=== PATIENT | female | born 1955 | race African-American/Black ===

== ENCOUNTER 2017-12-20 22:31 | Inpatient (IN) | payer MEDICAID ==
[~2017-12-20] VITALS: Ht 157.5 cm; Wt 68.0 kg
[~2017-12-20 22:31] MED LIST: CARBAMAZEPINE200 MG ORAL; CLONIDINE 0.2M0.2 MG GT; CLONIDINE0.1 MG ORAL; COLACE100 MG ORAL; HALOPERIDOL1 MG ORAL; LISINOPRIL20 MG ORAL; NORCO 5-325 TA1 EACH ORAL; RISPERDAL1 MG PO; TEMAZEPAM15 MG ORAL; TRAZODONE HCL150 MG ORAL; TYLENOL650 MG/20. ORAL
[2017-12-20 22:50] VITALS: BP 190/98
[2017-12-20] MEDS ORDERED: Furosemide 40mg tab ORAL ONE (23:45)
[2017-12-20 23:51] LABS: BASOPHILS % (AUTO) 1.1 % (0.0-2.0); EOSINOPHILS % (AUTO) 2.1 % (0.0-3.0); HEMATOCRIT 31.7 % (37.0-47.0); LYMPHOCYTES % (AUTO) 37.7 % (20.0-45.0); MEAN CORPUSCULAR VOLUME 85 FL (80-99); MONOCYTES % (AUTO) 9.1 % (1.0-10.0); PLATELET COUNT 207 K/UL (150-450); RED BLOOD COUNT 3.73 M/UL (4.20-5.40); RED CELL DISTRIBUTION WIDTH 14.4 % (11.6-14.8); WHITE BLOOD COUNT 6.1 K/UL (4.8-10.8)
[2017-12-21] LABS: INR 1.1 (0.9-1.1)
[2017-12-21 00:14] LABS: ANION GAP 7 mmol/L (5-15); BLOOD UREA NITROGEN 24 mg/dL (7-18); CALCIUM 8.8 MG/DL (8.5-10.1); CARBON DIOXIDE 28 MMOL/L (21-32); CHLORIDE 108 MMOL/L (98-107); CREATININE 1.4 MG/DL (0.55-1.30); POTASSIUM 4.2 MMOL/L (3.5-5.1); SODIUM 143 MMOL/L (136-145)
[2017-12-21 00:22] LABS: ALANINE AMINOTRANSFERASE 23 U/L (12-78); ALBUMIN 3.3 G/DL (3.4-5.0); ALBUMIN/GLOBULIN RATIO 0.7 (1.0-2.7); ALKALINE PHOSPHATASE 157 U/L (46-116); ASPARTATE AMINO TRANSFERASE 15 U/L (15-37); BILIRUBIN,TOTAL 0.5 MG/DL (0.2-1.0)
[2017-12-21 01:46] VITALS: BP 139/59
--- NOTE | 2017-12-21 02:35 | Emergency Room Report ---
History of Present Illness General Chief Complaint: Edema Source: Patient, EMS Present Illness HPI Patient is a 62-year-old female presented after increased shortness of breath and the leg swelling. Patient reports having prior history of hypertension. Patient was noted be markedly hypertensive by EMS. The patient denied any fever she had prior history of lung disease.History is markedly limited by poor historian. Allergies: Coded Allergies: PENICILLINS (Verified Allergy, Unknown, 06/14/15) Patient History Past Medical History: see triage record Last Menstrual Period: n/a Reviewed Nursing Documentation: PMH: Agreed; PSxH: Agreed Nursing Documentation-PMH Past Medical History: No History, Except For Hx Hypertension: Yes Hx Seizures: Yes Review of Systems All Other Systems: negative except mentioned in HPI Physical Exam Vital Signs Date Time Temp Pulse Resp B/P (MAP) Pulse Ox O2 Delivery O2 Flow Rate FiO2 12/20/17 22:24 99.0 88 16 190/98 98 Room Air Sp02 EP Interpretation: reviewed, normal General Appearance: normal inspection, alert, Chronically Ill Head: atraumatic ENT: normal ENT inspection, normal voice Neck: normal inspection, supple, no bony tend Respiratory: normal inspection, no respiratory distress, no retraction, rales Cardiovascular #1: regular rate, rhythm, edema Gastrointestinal: normal inspection, normal bowel sounds, non tender, soft, no guarding, no hernia Genitourinary: no CVA tenderness Musculoskeletal: normal inspection, back normal, normal range of motion Neurologic: normal inspection, alert, responsive, other Psychiatric: other - intermittently agitated Skin: normal inspection, normal color, no rash Medical Decision Making Diagnostic Impression: Primary Impression: CHF exacerbation Additional Impression: Uncontrolled hypertension ER Course Patient presented for shortness of breath. Differential included but was not limited to anemia, pneumonia, pneumothorax, myocardial infarction, pericardial effusion, congestive heart failure, acidosis. Because of complexity of patient' s case laboratory testing and imaging studies were ordered. The laboratory testing was notable for elevated BNP. Chest x-ray one view interpreted by me showed cardiomegaly without evident infiltrate. The patient given Lasix as well as clonidine for blood pressure. Dr. Jordan Johnson I was contacted for inpatient management due to capitated physician Labs Test 12/20/17 23:15 12/20/17 23:35 Urine Opiates Screen Negative (NEGATIVE) Urine Barbiturates Screen Negative (NEGATIVE) Phencyclidine (PCP) Screen Negative (NEGATIVE) Urine Amphetamines Screen Negative (NEGATIVE) Urine Benzodiazepines Screen Negative (NEGATIVE) Urine Cocaine Screen Negative (NEGATIVE) Urine Marijuana (THC) Screen Negative (NEGATIVE) White Blood Count 6.1 K/UL (4.8-10.8) Red Blood Count 3.73 M/UL (4.20-5.40) Hemoglobin 11.0 G/DL (12.0-16.0) Hematocrit 31.7 % (37.0-47.0) Mean Corpuscular Volume 85 FL (80-99) Mean Corpuscular Hemoglobin 29.5 PG (27.0-31.0) Mean Corpuscular Hemoglobin Concent 34.7 G/DL (32.0-36.0) Red Cell Distribution Width 14.4 % (11.6-14.8) Platelet Count 207 K/UL (150-450) Mean Platelet Volume 6.5 FL (6.5-10.1) Neutrophils (%) (Auto) 50.0 % (45.0-75.0) Lymphocytes (%) (Auto) 37.7 % (20.0-45.0) Monocytes (%) (Auto) 9.1 % (1.0-10.0) Eosinophils (%) (Auto) 2.1 % (0.0-3.0) Basophils (%) (Auto) 1.1 % (0.0-2.0) Prothrombin Time 12.0 SEC (9.30-11.50) Prothromb Time International Ratio 1.1 (0.9-1.1) Activated Partial Thromboplast Time 29 SEC (23-33) Sodium Level 143 MMOL/L (136-145) Potassium Level 4.2 MMOL/L (3.5-5.1) Chloride Level 108 MMOL/L (98-107) Carbon Dioxide Level 28 MMOL/L (21-32) Anion Gap 7 mmol/L (5-15) Blood Urea Nitrogen 24 mg/dL (7-18) Creatinine 1.4 MG/DL (0.55-1.30) Estimat Glomerular Filtration Rate 46.1 mL/min (>60) Glucose Level 86 MG/DL (74-106) Calcium Level 8.8 MG/DL (8.5-10.1) Total Bilirubin 0.5 MG/DL (0.2-1.0) Aspartate Amino Transf (AST/SGOT) 15 U/L (15-37) Alanine Aminotransferase (ALT/SGPT) 23 U/L (12-78) Alkaline Phosphatase 157 U/L (46-116) Troponin I 0.000 ng/mL (0.000-0.056) Pro-B-Type Natriuretic Peptide 627 pg/mL (0-125) Total Protein 8.0 G/DL (6.4-8.2) Albumin 3.3 G/DL (3.4-5.0) Globulin 4.7 g/dL Albumin/Globulin Ratio 0.7 (1.0-2.7) Thyroid Stimulating Hormone (TSH) 1.092 uiU/mL (0.358-3.740) Serum Alcohol < 3 mg/dL EKG Diagnostic Results Rate: normal - 73 Rhythm: NSR ST Segments: no acute changes Last Vital Signs Date Time Temp Pulse Resp B/P (MAP) Pulse Ox O2 Delivery O2 Flow Rate FiO2 12/21/17 01:46 99.0 74 14 139/59 96 Room Air Status: unchanged Disposition: ADMITTED INPATIENT Condition: Serious Referrals: NON PHYSICIAN (PCP) Lazaro Hensley MD Dec 21, 2017 02:35
[2017-12-21 04:20] VITALS: BP 152/57
[2017-12-21] MEDS ORDERED: Norco 5mg/325mg tab ORAL PRN (05:30)
[2017-12-21] MEDS ORDERED: Albuterol/Ipratropium 3ml neb HHN PRN (05:30)
[2017-12-21] MEDS ORDERED: Haloperidol 1mg tab ORAL PRN (05:45)
[2017-12-21] MEDS ORDERED: Haloperidol 5mg/ml Inj IM PRN (06:00)
[2017-12-21] MEDS: Solu-MEDROL 40mg Inj IVP SCH ×2 (06:00→06:37)
--- NOTE | 2017-12-21 07:45 | History and Physical Report ---
DATE OF ADMISSION: 12/21/2017 CHIEF COMPLAINT: Shortness of breath and foot pain and edema. HISTORY OF PRESENT ILLNESS: The patient is a 62-year-old female, who presented with complaints of foot pain and edema. The patient has a history of hypertensive heart disease, psychosis, and CHF. According to the patient, she had been walking all day. She states she lives at [facility]. She apparently is homeless. On evaluation in the emergency room, she was noted to have edema of the lower extremities. She had an elevated natriuretic peptide level of 627. Chest x-ray cardiomegaly with some pulmonary vascular congestion. In light of the edema and shortness of breath, she is admitted for IV diuretic therapy. The patient denies any fevers or chills. She has had no cough. PAST MEDICAL HISTORY: As above. PAST SURGICAL HISTORY: None. CURRENT MEDICATIONS: Reconciled and reviewed. ALLERGIES: Include penicillin. FAMILY HISTORY: Noncontributory. SOCIAL HISTORY: There is no known history of tobacco, ethanol, or drugs. REVIEW OF SYSTEMS: GENERAL: No fevers or chills. HEENT: No headaches or visual changes. CARDIOPULMONARY: No chest pain. Mild shortness of breath. Mild positive lower extremity edema. GENITOURINARY: No urgency or frequency. GASTROINTESTINAL: No nausea or vomiting. MUSCULOSKELETAL: No joint pain. Positive lower extremity swelling. NEUROLOGIC: No evidence of seizures. PHYSICAL EXAMINATION: VITAL SIGNS: Temperature 98.3, pulse 68, respirations 18, and blood pressure 190/98. GENERAL: The patient is a well developed female, in no apparent distress. She is a poor historian. Speech is somewhat slurred. NECK: Supple. No carotid bruits. HEART: Regular rate and rhythm. LUNGS: Clear. ABDOMEN: Soft. EXTREMITIES: Without clubbing or cyanosis. There is 1+ to 2+ pitting edema noted. LABORATORY DATA: White count 6, hemoglobin 11, hematocrit 31, and platelets of 207. Sodium is 143, creatinine is 1.4. INR is 1.1. 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 PLAN: Intravenous Lasix. Check an echo. Repeat troponin. Monitor renal function. Elevate legs. Discussed . Jordan Johnson M.D. DR: CHANDLER JOB#: [id number] CC:
[2017-12-21 08:00] VITALS: BP 162/84
[2017-12-21] MEDS ORDERED: Heparin 5000 units/ml inj SUBQ SCH (09:00)
[2017-12-21] MEDS ORDERED: carBAMazepine 200mg tab ORAL ONE (09:00)
[2017-12-21] MEDS ORDERED: Docusate 100mg cap ORAL SCH (09:00)
[2017-12-21] MEDS ORDERED: Lisinopril 20mg tab ORAL SCH (09:00)
[2017-12-21 09:07] VITALS: BP 162/84
[2017-12-21] MEDS ORDERED: carBAMazepine 200mg tab ORAL SCH (11:00)
--- NOTE | 2017-12-21 11:03 | Diagnostic Imaging Report ---
Indication: Dyspnea Comparison: None A single view chest radiograph was obtained. Findings: The study is nondiagnostic with regard to the lung bases which are not included in the [id number]. The patient was uncooperative and the refused to continue and this is the best imaging that could be obtained at that time. The heart appears enlarged. The bones are osteopenic. There is a suggestion of multiple rib fractures likely old along the left chest wall. IMPRESSION: Limited evaluation as discussed above.
--- NOTE | 2017-12-21 11:29 | Diagnostic Imaging Report ---
Indication: Foot pain Comparison: None Findings: 2 views of the left foot were obtained. Study is limited. No obvious fracture or malalignment identified. There is moderate severe arthrosis of the first MTP joint present. Bones are osteopenic. Plantar calcaneal spur formation noted. Generalized soft tissue swelling noted nonspecific. IMPRESSION: Limited evaluation showing no acute injury.
--- NOTE | 2017-12-21 11:30 | Diagnostic Imaging Report ---
Indication: Foot Pain Comparison: None Findings: 2 views of the right foot were obtained. Bones are osteopenic. No obvious fracture or malalignment demonstrated on the limited evaluation obtained. Narrowing of the first MTP joint is moderate with spurring. IMPRESSION: No obvious acute injury
[2017-12-21] MEDS ORDERED: TraZODone 50mg tab ORAL SCH (21:00)
--- NOTE | 2017-12-22 08:26 | Discharge Summary ---
Discharge Summary Discharge Summary _ DATE OF ADMISSION: 12/21/2017 DATE OF DISCHARGE: 12/21/2017 BRIEF HOSPITAL COURSE: Patient is a 62-year-old female, who presented to ED with complaints of foot pain and edema. Patient has history of hypertensive heart disease, psychosis and CHF. On evaluation at ED, she was noted to have edema of the lower extremities. BNP was elevated to 625. Chest x-ray showed cardiomegaly with pulmonary vascular congestion. She was admitted to telemetry for CHF exacerbation, however, left AGAINST MEDICAL ADVICE. FINAL DIAGNOSES: Lower extremity edema, possibly secondary to acute on chronic systolic and diastolic heart failure in exacerbation Hypertensive heart disease Psychosis DISPOSITION: Patient left AGAINST MEDICAL ADVICE. I have been assigned to dictate discharge summary on this account, and I was not involved in the patient's management. Megha Cao NP Dec 22, 2017 08:26
--- NOTE | 2017-12-22 16:13 | Cardiology Report ---
APPROVED REPORT EKG Measurement Heart [id number] Normal sinus rhythm Normal ECG
== END 2017-12-21 09:55 | disposition left against medical advice (07) | DRG 194 ==
LOC: EDBD 22:31 → EMR 23:41 → 2E 12-21 03:12 → EDBEDREQ 12-21 03:54
DX: I11.0 Hypertensive heart disease with heart failure (principal); F29 Unspecified psychosis not due to a substance or known physiological condition; I50.43 Acute on chronic combined systolic (congestive) and diastolic (congestive) heart failure; Z88.0 Allergy status to penicillin; Z53.21 Procedure and treatment not carried out due to patient leaving prior to being seen by health care provider
CPT/HCPCS: 36415; 71045; 80053; 80307; 80329; 83880; 84443; 84484; 85025; 85610; 85730; 93005; 96374; 99285